=== PATIENT | female | born 1980 | race Caucasian/White ===

== ENCOUNTER 2024-11-18 07:17 | Day surgery (SDC) | payer BC, OTHER ==
[2024-11-18] MEDS: Ringers Lactate 1,000 ML IV ONE (07:17)
[2024-11-18] MEDS ORDERED: ONDANSETRON 4 MG/2 ML VIAL ONE (08:14)
[2024-11-18] MEDS ORDERED: LIDOCAINE 1% MPF 5 ML VIAL ONE (08:14)
[2024-11-18] MEDS ORDERED: FENTANYL CITR 100 MCG/2 ML ONE (08:14)
[2024-11-18] MEDS ORDERED: MIDAZOLAM HCL 2 MG/2 ML INJ ONE (08:15)
[2024-11-18] MEDS ORDERED: BUPIVACAINE 0.25% PF 10 ML VIAL ONE (08:28)
[2024-11-18] MEDS ORDERED: LIDOCAINE HCL/EPINEPHRINE 20 ML MDV ONE (08:29)
[2024-11-18] MEDS: BUPIVACAINE 0.5% PF 10 ML VIAL ONE (08:54)
[2024-11-18] MEDS ORDERED: KETOROLAC 30 MG/ML INJ ONE (08:55)
[2024-11-18] MEDS ORDERED: GLYCOPYRROLATE 0.2 MG/ML SYR ONE ×2 (08:57→08:58)
--- NOTE | 2024-11-18 09:13 | P.OP ---
Intake Manager: NONE,NONE Preoperative diagnosis: Vascular lesion left lower lip, uncertain behavior Postoperative diagnosis: Same Primary procedure: Excision left lower lip with primary closure Anesthesia: General Via LMA Estimated blood loss: Less than 1 mL Specimen: Left lower lip lesion, permanent section Findings: 1 x 0.5 cm vascular lesion left lower mucosal lip Operative Technique: After adequate plane of anesthesia, the patient's lower lip was distracted revealing a 1 x 0.5 cm submucosal vascular appearing lesion which was located just anterior to the wet dry border. Transverse versus wedge direction was considered and a wedge resection was felt to be the in the patient's best interest in regards to cosmesis of the lip. Local anesthetic consisting of 0.25% Marcaine was injected into the area around the lip to aid in intraoperative and postoperative pain management. A needlepoint Bovie electrocautery on a setting of 10 W was used to cut through the mucosa with minimal medial and lateral margins. The lesion was judiciously grasped and the needlepoint Bovie electrocautery was used to dissect in the submucosal tissue around the lesion, removing it entirely from the underlying muscular layers. It did not appear to have attachment to the labial artery. Once the lesion was completely extirpated the wound was closed in a layered fashion using 4-0 Vicryl sutures to approximate the medial and lateral edges. The mucosal and skin of the lip was closed in a running fashion using 5-0 chromic suture. Bleeding was minimal. Complications: None
[2024-11-18 09:40] VITALS: BP 110/58; TEMP 97.3; O2SAT 100
== END 2024-11-18 10:20 | disposition home or self-care (01) ==
LOC: OR 07:17
PROVIDERS: ATTEND Otolaryngology
PROC: 0CB10ZX Excision of Lower Lip, Open Approach, Diagnostic (ICD-10-PCS; principal; 2024-11-18 08:15)
DX: D18.01 Hemangioma of skin and subcutaneous tissue (principal)
CPT/HCPCS: 93005; 88305; 11441; J2704; J2003; J2250; J3010; J2405; J7120